=== PATIENT | female | born 2000 | race American Indian/Alaskan Native ===

== ENCOUNTER 2021-01-22 18:52 | Emergency (ER) | payer MEDICAID ==
--- NOTE | 2021-01-22 19:48 | Event Note ---
ED Screening Note Date of service: 01/22/21 Time: 19:46 ED Screening Note: Patient is a 20-year-old -[place] female who presents for left pelvic pain. Patient states 7 weeks confirmed by urgent care today. Abdominal pain is 8/10 cramping aching sharp. Pain is exacerbated by nothing. Pain is relieved by nothing. Patient denies vaginal bleeding, fever or chills, no nausea vomiting. Last menstrual cycle 3 months ago. G0, P0, A0 This initial assessment/diagnostic orders/clinical plan/treatment(s) is/are subject to change based on patients health status, clinical progression and re- assessment by fellow clinical providers in the ED. Further treatment and workup at subsequent clinical providers discretion. Patient/guardian urged not to elope from the ED as their condition may be serious if not clinically assessed and managed. Initial orders include: cbc, ua, hcg quant
[2021-01-22 20:38] LABS: Basophils % (Auto) 0.5 % (0.0-1.8); Eosinophils # (Auto) 0.4 K/mm3 (0.0-0.4); Eosinophils % (Auto) 5.5 % (0.0-4.3); Hematocrit 38.7 % (30.3-42.9); Hemoglobin 13.1 gm/dl (10.1-14.3); Lymphocytes # (Auto) 2.3 K/mm3 (1.2-5.4); Lymphocytes % (Auto) 34.7 % (13.4-35.0); Mean Corpuscular HGB Conc 34 % (30-34); Mean Corpuscular Volume 93 fl (79-97); Monocytes # (Auto) 0.6 K/mm3 (0.0-0.8); Monocytes % (Auto) 9.4 % (0.0-7.3); Platelet Count 228 K/mm3 (140-440); Red Blood Count 4.16 M/mm3 (3.65-5.03); Red Cell Distribution Width 13.6 % (13.2-15.2)
[2021-01-22 20:53] LABS: Bacteria,Urine 4+ /HPF (Negative); Bilirubin,Urine NEG (Negative); Blood,Urine SM (Negative); Color,Urine Yellow (Yellow); Mucus,Urine FEW /HPF; Urobilinogen,Urine < 2.0 mg/dL (<2.0)
--- NOTE | 2021-01-22 23:27 | Ultrasound Report ---
ULTRASOUND OBSTETRIC INDICATION / CLINICAL INFORMATION: abd pain pos preg. TECHNIQUE: Transabdominal and Transvaginal. COMPARISON: None available. FINDINGS: GESTATIONAL SAC: Well-defined oval shape and intrauterine in location. YOLK SAC: No significant abnormality. EMBRYO/FETUS: No significant abnormality. - [place]-Rump Length = 4.7 cm = 6.1 weeks.days - Heart Rate, beats per minute (if present) = 114 ADNEXA: No significant abnormality. FREE FLUID: None. ADDITIONAL FINDINGS: None. IMPRESSION: 1. Single, living intrauterine with estimated sonographic age of 6.1 weeks.days. Signer Name: Jose Herndon MD Signed: 01/22/2021 11:23 PM Workstation Name: [id number]
--- NOTE | 2021-01-22 23:43 | Emergency Department Report ---
ED Abdominal Pain HPI - General Chief Complaint: Abdominal Pain Stated Complaint: PELVIC PAIN Time Seen by Provider: 01/22/21 23:38 Source: patient Mode of arrival: Ambulatory Limitations: No Limitations - History of Present Illness Initial Comments: Patient is a 20-year-old -[place] female who presents for left pelvic pain. Patient states 7 weeks confirmed by urgent care today. Abdominal pain is 8/10 cramping aching sharp. Pain is exacerbated by nothing. Pain is relieved by nothing. Patient denies vaginal bleeding, fever or chills, no nausea vomiting. Last menstrual cycle 3 months ago. G0, P0, A0 MD Complaint: abdominal pain - Related Data Previous Rx's Medication Instructions Recorded Last Taken Type Acetaminophen [Tylenol] 650 mg PO Q6H PRN #30 capsule 01/22/21 Unknown Rx cephALEXin [Keflex] 500 mg PO BID #14 cap 01/22/21 Unknown Rx Allergies Allergy/AdvReac Type Severity Reaction Status Date / Time No Known Allergies Allergy Unverified 01/22/21 19:55 ED Review of Systems ROS: Stated complaint: PELVIC PAIN Other details as noted in HPI Constitutional: denies: chills, fever Eyes: denies: eye pain, eye discharge, vision change ENT: denies: ear pain, throat pain Respiratory: denies: cough, shortness of breath, wheezing Cardiovascular: denies: chest pain, palpitations Endocrine: no symptoms reported Gastrointestinal: abdominal pain (llQ). denies: nausea, vomiting Genitourinary: denies: urgency, dysuria, discharge Musculoskeletal: denies: back pain, joint swelling, arthralgia Skin: denies: rash, lesions Neurological: denies: headache, weakness, paresthesias Psychiatric: denies: anxiety, depression Hematological/Lymphatic: denies: easy bleeding, easy bruising ED Past Medical Hx - Past Medical History Previous Medical History?: No - Surgical History Past Surgical History?: No - Social History Smoking Status: Never Smoker Substance Use Type: Alcohol - Medications Home Medications: Home Medications Medication Instructions Recorded Confirmed Last Taken Type Acetaminophen [Tylenol] 650 mg PO Q6H PRN #30 capsule 01/22/21 Unknown Rx cephALEXin [Keflex] 500 mg PO BID #14 cap 01/22/21 Unknown Rx ED Physical Exam - General Limitations: No Limitations General appearance: alert, in no apparent distress - Head Head exam: Present: atraumatic, normocephalic - Eye Eye exam: Present: normal appearance, EOMI Pupils: Present: normal accommodation - ENT ENT exam: Present: mucous membranes moist - Neck Neck exam: Present: normal inspection, full ROM. Absent: tenderness - Respiratory Respiratory exam: Present: normal lung sounds bilaterally. Absent: respiratory distress, wheezes, stridor - Cardiovascular Cardiovascular Exam: Present: regular rate, normal rhythm, normal heart sounds. Absent: systolic murmur, diastolic murmur, rubs, gallop - GI/Abdominal GI/Abdominal exam: Present: soft, tenderness (LLQ ), normal bowel sounds. Absent: distended, guarding, rebound, rigid, bruit, hernia - Rectal Rectal exam: Present: deferred - External exam: Present: other (deferred patient ) - Extremities Exam Extremities exam: Present: normal inspection, full ROM. Absent: tenderness, pedal edema - Back Exam Back exam: Present: normal inspection, full ROM. Absent: tenderness, CVA tenderness (R), CVA tenderness (L) - Neurological Exam Neurological exam: Present: alert, oriented X3, CN II-XII intact, normal gait - Psychiatric Psychiatric exam: Present: normal affect, normal mood - Skin Skin exam: Present: warm, dry, intact, normal color. Absent: rash ED Course Vital Signs 01/22/21 19:54 Temperature 98.6 F Pulse Rate 79 Respiratory 20 Rate Blood Pressure 124/68 O2 Sat by Pulse 98 Oximetry ED Medical Decision Making - Lab Data Result diagrams: 01/22/21 19:50 Labs 01/22/21 01/22/21 01/22/21 19:50 19:50 Unknown WBC 6.7 RBC 4.16 Hgb 13.1 Hct 38.7 MCV 93 MCH 32 MCHC 34 RDW 13.6 Plt Count 228 Lymph % (Auto) 34.7 [place] % (Auto) 9.4 H Eos % (Auto) 5.5 H Baso % (Auto) 0.5 Lymph # (Auto) 2.3 [place] # (Auto) 0.6 Eos # (Auto) 0.4 Baso # (Auto) 0.0 Seg Neutrophils % 49.9 Seg Neutrophils # 3.3 HCG, Quant 4064 H Urine Color Yellow Urine Turbidity Slightly-cloudy Urine pH 7.0 Ur Specific [place] 1.026 Urine Protein 30 mg/dl Urine Glucose (UA) Neg Urine Ketones Tr Urine Blood Sm Urine Nitrite Neg Urine Bilirubin Neg Urine Urobilinogen < 2.0 Ur Leukocyte Esterase Tr Urine WBC (Auto) 7.0 H Urine RBC (Auto) 5.0 U Epithel Cells (Auto) 9.0 Urine Bacteria (Auto) 4+ Urine Mucus Few - Radiology Data Radiology results: report reviewed, image reviewed Single IUP 6 weeks and 1 day, FHR: 114 bpm, - Medical Decision Making US OB, Single IUP 6 weeks and 1 day, FHR: 114 bpm, ua: pos wbc, leuk, plan tx for UTI during , follow up with OBGYN tomorrow Dx, UTI, Threatened miscarriage , pt verbalized agreement and understanding of same. Critical care attestation.: If time is entered above; I have spent that time in minutes in the direct care of this critically ill patient, excluding procedure time. ED Disposition Clinical Impression: Abdominal pain during in first trimester, Threatened miscarriage in early UTI (urinary tract infection) during Qualifiers: Trimester: first trimester Qualified Code(s): O23.41 - Unspecified infection of urinary tract in , first trimester Disposition: DC-01 TO HOME OR SELFCARE Is pt being admited?: No Does the pt Need Aspirin: No Condition: Stable Instructions: and Urinary Tract Infection, Abdominal Pain During , Abdominal Pain (ED) Prescriptions: cephALEXin [Keflex] 500 mg PO BID #14 cap Acetaminophen [Tylenol] 650 mg PO Q6H PRN #30 capsule PRN Reason: Pain Referrals: [facility] [Provider Group] - 3-5 Days Forms: Work/School Release Form(ED) Time of Disposition: 23:47
[2021-01-23 01:41] VITALS: BP 122/84
--- NOTE | 2021-01-23 09:23 | Ultrasound Report ---
ULTRASOUND OBSTETRIC INDICATION / CLINICAL INFORMATION: abd pain pos preg. Clinical Gestational Age (GA): 7 weeks 2 days TECHNIQUE: Transabdominal and Transvaginal. COMPARISON: Transvaginal exam coincided with the prior transabdominal exam dated 01/22/2021. FINDINGS: GESTATIONAL SAC: Well-defined oval shape and intrauterine in location. YOLK SAC: No significant abnormality. EMBRYO/FETUS: No significant abnormality. - [place]-Rump Length = 4.7 cm = 6 weeks 1 days - Heart Rate, beats per minute (if present) = 114 ADNEXA: No significant abnormality. FREE FLUID: None. ADDITIONAL FINDINGS: None. IMPRESSION: 1. Single, living intrauterine with estimated sonographic age of 6. weeks 1 day. Signer Name: Jose Ramon Gramajo MD Signed: 01/23/2021 9:19 AM Workstation Name: [id number]
== END 2021-01-23 00:10 | disposition home or self-care (01) ==
LOC: ED 18:52
DX: O20.0 Threatened abortion (principal); O23.41 Unspecified infection of urinary tract in pregnancy, first trimester; O26.891 Other specified pregnancy related conditions, first trimester; R10.2 Pelvic and perineal pain; Z3A.01 Less than 8 weeks gestation of pregnancy; Z79.899 Other long term (current) drug therapy
CPT/HCPCS: 36415; 76801; 76817; 76830; 81001; 84702; 85025